=== PATIENT | male | born 1990 | race Two or more races ===

== ENCOUNTER 2017-09-22 21:50 | Inpatient (IN) | payer SELFPAY ==
[2017-09-22] MEDS ORDERED: MORPHINE SULFATE 10 MG/ML VIAL. (22:05)
[2017-09-22] MEDS: MORPHINE SULFATE 10 MG/ML VIAL. IM ×2 (22:07→22:34)
[2017-09-22 23:04] LABS: ADD MAN DIFF? YES; BASO # 0.1 x10^3/uL (0.0-0.2); BASO % 0 % (0-3); EOS # 0.2 x10^3/uL (0.0-0.7); EOS % 1 % (0-3); HEMATOCRIT 44.3 % (39.0-53.0); LYMPH # 2.6 x10^3/uL (1.0-4.8); LYMPH % 12 % (24-48); MEAN CORPUSCULAR HEMOGLOBIN 30 pg (25-35); MEAN CORPUSCULAR HGB CONC 34 g/dL (31-37); MEAN CORPUSCULAR VOLUME 87 fL (79-100); MONO % 5 % (0-9); NEUT # 17.6 x10^3uL (1.8-7.7); NEUT % 82 % (31-73); PLATELET COUNT 203 x10^3/uL (140-400); RED BLOOD COUNT 5.09 x10^6/uL (4.30-5.70); RED CELL DISTRIBUTION WIDTH 13.8 % (11.5-14.5); WHITE BLOOD COUNT 21.4 x10^3/uL (4.0-11.0)
[2017-09-22 23:15] LABS: ANION GAP 9 (6-14); BLOOD UREA NITROGEN 15 mg/dL (8-26); CALCIUM 8.9 mg/dL (8.5-10.1); CARBON DIOXIDE 29 mmol/L (21-32); CHLORIDE 101 mmol/L (98-107); CREATININE 1.1 mg/dL (0.7-1.3); GFR 79.7; GLUCOSE 106 mg/dL (70-99); POTASSIUM 4.1 mmol/L (3.5-5.1); SODIUM 139 mmol/L (136-145)
[2017-09-22 23:28] LABS: % BANDS 7 % (0-9); % EOS 2 % (0-5); % LYMPHS 9 % (24-48); % MONOS 3 % (0-10); % SEGS 79 % (35-66)
[2017-09-22 23:31] LABS: PLT ESTIMATE ADEQUATE (ADEQUATE)
[2017-09-22] MEDS: HYDROmorphone 2 MG/ML VIAL IV/SQ (23:51)
[2017-09-23] MEDS: IV NORMAL SALINE 1000ML BAG 1,000 ML IV ×3 (00:02→19:45)
[2017-09-23] MEDS: ONDANSETRON PF 4 MG/2 ML VIAL. IV (00:05)
[2017-09-23] MEDS: HYDROmorphone 2 MG/ML VIAL IVP ×2 (00:06→06:18)
[2017-09-23] MEDS ORDERED: ONDANSETRON PF 4 MG/2 ML VIAL. IV (09:30)
[2017-09-23] MEDS: IV RINGERS,LACTATED 1000ML 1,000 ML IV (09:30)
[2017-09-23] MEDS ORDERED: MORPHINE SULFATE 2 MG/ML DISP.SYRIN. IV (09:30)
[2017-09-23] MEDS ORDERED: HYDROmorphone 2 MG/ML VIAL IV (09:30)
[2017-09-23] MEDS ORDERED: fentaNYL PF VIAL 100 MCG/2 ML VIAL ×4 (09:53→16:37)
[2017-09-23] MEDS ORDERED: PROPOFOL 20 ML IV (09:53)
[2017-09-23] MEDS ORDERED: ROCURONIUM 50 MG/5 ML VIAL. (09:53)
[2017-09-23] MEDS ORDERED: LIDOCAINE 2% PF Vial for OR 5 ML VIAL. (09:53)
[2017-09-23] MEDS: fentaNYL PF VIAL 100 MCG/2 ML VIAL IV ×5 (11:02→16:56)
[2017-09-23] MEDS ORDERED: SCOPOLAMINE 1.5MG PATCH. TD (11:41)
[2017-09-23] MEDS: SCOPOLAMINE 1.5MG PATCH. TD (11:46)
[2017-09-23] MEDS ORDERED: ONDANSETRON PF 4 MG/2 ML VIAL. (11:56)
[2017-09-23] MEDS ORDERED: FAMOTIDINE 20 MG/2 ML VIAL (11:56)
[2017-09-23] MEDS ORDERED: DESFLURANE > 120 MINUTES IH (11:56)
[2017-09-23] MEDS ORDERED: DEXAMETHASONE SOD PHOS 20 MG/5 ML VIAL. (11:56)
[2017-09-23] MEDS: LIDOCAINE 1% PF 2 ML VIAL. ID (11:57)
[2017-09-23] MEDS ORDERED: diphenhydrAMINE 50 MG/ML VIAL (12:10)
[2017-09-23] MEDS: BUPIVACAINE-EPI 0.25%-1:200000 50 ML VIAL. (12:23)
[2017-09-23] MEDS ORDERED: GLYCOPYRROLATE 1 MG/5 ML VIAL. (12:39)
[2017-09-23] MEDS: TRANEXAMIC ACID 1,000 MG in IV NORMAL SALINE 50ML 50 ML INJ ×2 (12:52→14:53)
[2017-09-23] MEDS ORDERED: SENNOSIDES/DOCUSATE 8.6/50MG TABLET. PO (16:00)
[2017-09-23] MEDS ORDERED: PROCHLORPERAZINE 10 MG/2 ML VIAL. (16:52)
[2017-09-23] MEDS: PROCHLORPERAZINE 10 MG/2 ML VIAL. IV ×2 (16:56→17:40)
[2017-09-23] MEDS: oxyCODONE IR 5 MG TABLET PO ×2 (19:58→22:50)
[2017-09-24] MEDS: oxyCODONE IR 5 MG TABLET PO ×6 (00:44→21:03)
[2017-09-24 01:23] LABS: ADD MAN DIFF? NO
[2017-09-24 01:25] LABS: BASO # 0.1 x10^3/uL (0.0-0.2); BASO % 0 % (0-3); EOS % 0 % (0-3); HEMATOCRIT 38.3 % (39.0-53.0); LYMPH # 2.3 x10^3/uL (1.0-4.8); LYMPH % 10 % (24-48); MEAN CORPUSCULAR HEMOGLOBIN 30 pg (25-35); MEAN CORPUSCULAR HGB CONC 34 g/dL (31-37); MEAN CORPUSCULAR VOLUME 87 fL (79-100); MONO # 1.6 x10^3/uL (0.0-1.1); MONO % 7 % (0-9); NEUT # 19.5 x10^3uL (1.8-7.7); NEUT % 83 % (31-73); PLATELET COUNT 248 x10^3/uL (140-400); RED CELL DISTRIBUTION WIDTH 13.9 % (11.5-14.5); WHITE BLOOD COUNT 23.5 x10^3/uL (4.0-11.0)
[2017-09-24] MEDS: ONDANSETRON PF 4 MG/2 ML VIAL. IV ×2 (01:26→10:52)
[2017-09-24] MEDS: HYDROmorphone 2 MG/ML VIAL IVP ×4 (01:26→18:50)
[2017-09-24 03:18] LABS: ANION GAP 8 (6-14); BLOOD UREA NITROGEN 7 mg/dL (8-26); CALCIUM 8.2 mg/dL (8.5-10.1); CARBON DIOXIDE 28 mmol/L (21-32); CHLORIDE 103 mmol/L (98-107); CREATININE 0.8 mg/dL (0.7-1.3); GFR 115.1; GLUCOSE 148 mg/dL (70-99); SODIUM 139 mmol/L (136-145)
[2017-09-24] MEDS: HEPARIN PF for SUB-Q USE 5,000 UNIT/0.5 ML VIAL. SQ ×3 (06:00→22:07)
[2017-09-24] MEDS ORDERED: hydrALAZINE 20 MG/ML VIAL. IVP (12:30)
[2017-09-24] MEDS ORDERED: ACETAMINOPHEN 325 MG TABLET. PO (12:30)
[2017-09-24] MEDS ORDERED: DOCUSATE SODIUM 100 MG CAPSULE. PO (12:30)
[2017-09-24] MEDS: MORPHINE SULFATE 2 MG/ML DISP.SYRIN. IV (15:42)
[2017-09-24] MEDS: traMADol 50 MG TABLET PO (22:58)
[2017-09-25] MEDS: ACETAMINOPHEN 500 MG TABLET PO ×5 (00:18→23:54)
[2017-09-25] MEDS: oxyCODONE IR 5 MG TABLET PO ×5 (00:57→23:55)
[2017-09-25] MEDS: HYDROmorphone 2 MG/ML VIAL IVP ×3 (03:03→11:58)
[2017-09-25 04:52] LABS: ADD MAN DIFF? NO
[2017-09-25 04:58] LABS: BASO % 0 % (0-3); EOS # 0.1 x10^3/uL (0.0-0.7); EOS % 1 % (0-3); HEMATOCRIT 32.7 % (39.0-53.0); HEMOGLOBIN 11.2 g/dL (13.0-17.5); LYMPH # 2.9 x10^3/uL (1.0-4.8); LYMPH % 21 % (24-48); MEAN CORPUSCULAR HEMOGLOBIN 30 pg (25-35); MEAN CORPUSCULAR HGB CONC 34 g/dL (31-37); MEAN CORPUSCULAR VOLUME 87 fL (79-100); MONO # 1.4 x10^3/uL (0.0-1.1); MONO % 10 % (0-9); NEUT # 9.6 x10^3uL (1.8-7.7); NEUT % 69 % (31-73); PLATELET COUNT 144 x10^3/uL (140-400); RED BLOOD COUNT 3.76 x10^6/uL (4.30-5.70); RED CELL DISTRIBUTION WIDTH 13.3 % (11.5-14.5)
[2017-09-25 05:12] LABS: ANION GAP 5 (6-14); BLOOD UREA NITROGEN 7 mg/dL (8-26); CALCIUM 8.3 mg/dL (8.5-10.1); CARBON DIOXIDE 32 mmol/L (21-32); CHLORIDE 99 mmol/L (98-107); CREATININE 0.8 mg/dL (0.7-1.3); GFR 115.1; GLUCOSE 104 mg/dL (70-99); POTASSIUM 3.5 mmol/L (3.5-5.1); SODIUM 136 mmol/L (136-145)
[2017-09-25] MEDS: HEPARIN PF for SUB-Q USE 5,000 UNIT/0.5 ML VIAL. SQ ×3 (06:20→22:00)
[2017-09-25] MEDS: traMADol 50 MG TABLET PO (07:14)
[2017-09-25] MEDS: ONDANSETRON PF 4 MG/2 ML VIAL. IV (08:47)
[2017-09-25] MEDS: HYDROmorphone 2 MG TABLET PO ×2 (14:28→19:42)
[2017-09-26] MEDS: ACETAMINOPHEN 500 MG TABLET PO ×3 (05:54→18:00)
[2017-09-26] MEDS: oxyCODONE IR 5 MG TABLET PO ×4 (05:56→17:31)
[2017-09-26] MEDS: HEPARIN PF for SUB-Q USE 5,000 UNIT/0.5 ML VIAL. SQ ×2 (05:59→14:00)
[2017-09-26] MEDS: ONDANSETRON ODT 4 MG TAB.RAPDIS. PO (18:30)
== END 2017-09-26 19:45 | disposition home or self-care (01) | DRG 494 ==
LOC: ER 21:50 → 4 NORTH 22:55
PROC: 0PSG04Z Reposition Left Humeral Shaft with Internal Fixation Device, Open Approach (ICD-10-PCS; principal; 2017-09-23 11:45)
PROC: 01S40ZZ Reposition Ulnar Nerve, Open Approach (ICD-10-PCS; 2017-09-23 11:45)
DX: S42.402A Unspecified fracture of lower end of left humerus, initial encounter for closed fracture (principal); D72.829 Elevated white blood cell count, unspecified; W00.0XXA Fall on same level due to ice and snow, initial encounter; F17.200 Nicotine dependence, unspecified, uncomplicated; J45.909 Unspecified asthma, uncomplicated; F12.90 Cannabis use, unspecified, uncomplicated; R41.0 Disorientation, unspecified; Y93.29 Activity, other involving ice and snow; Y92.89 Other specified places as the place of occurrence of the external cause; Y99.8 Other external cause status
CPT/HCPCS: 29105; 36415; 73060; 73200; 80048; 85007; 85025; 96372; 96374; 97110-GP; 97116-GP; 97162-GP; 97165-GO; 97530-GP; 97535-GO; 99285-25; C1713; J0690; J0780; J1100; J1170; J1200; J2270; J2405; J2704; J3010; J3490; J7030; J7120; Q0162; S0028